=== PATIENT | female | born 1970 | race Caucasian/White ===

== ENCOUNTER 2018-10-02 05:49 | Emergency (ER) | payer OTHER, BC ==
[2018-10-02 07:10] LABS: URINE BLOOD (Dip) POC Trace-lysed (NEGATIVE); URINE KETONES (Dip) POC 1+ (NEGATIVE); URINE LEUKOCYTE EST (Dip) POC Negative (NEGATIVE); URINE NITRITE (Dip) POC Negative (NEGATIVE); URINE TOTAL PROTEIN POC Negative (NEGATIVE)
[2018-10-02 07:10] LABS: URINE PH (Dip) POC 5.5 (5.0-8.5)
[2018-10-02] MEDS: KETOROLAC 30 MG INJ IM (07:12)
== END 2018-10-02 08:09 | disposition home or self-care (01) ==
LOC: FTE 05:49
DX: S39.012A Strain of muscle, fascia and tendon of lower back, initial encounter (principal); M46.06 Spinal enthesopathy, lumbar region; I10 Essential (primary) hypertension; E11.9 Type 2 diabetes mellitus without complications; W18.39XA Other fall on same level, initial encounter; Y92.9 Unspecified place or not applicable
CPT/HCPCS: 72100; 81003; 81025; 96372; 99284-25

== ENCOUNTER 2019-02-16 05:45 | Day surgery (SDC) | payer OTHER ==
[2019-02-16] MEDS ORDERED: LABETALOL HCL 20MG INJ IV (07:00)
[2019-02-16] MEDS ORDERED: hydrALAzine 20 MG INJ IV (07:00)
[2019-02-16] MEDS ORDERED: HYDROmorphONE 1 MG/5 ML IV SYRINGE IV ×3 (07:00)
[2019-02-16] MEDS ORDERED: OXYCODONE/ACETAMINOPHEN (5/325) TAB PO ×2 (07:00)
[2019-02-16] MEDS ORDERED: LIDOCAINE 2% (SDV) 5 ML INJ (07:33)
[2019-02-16] MEDS ORDERED: PROPOFOL 20 ML ×2 (07:33→07:50)
[2019-02-16] MEDS ORDERED: MIDAZOLAM 1 MG/ML 2 ML INJ (07:33)
[2019-02-16] MEDS ORDERED: ONDANSETRON 4 MG INJ (07:50)
[2019-02-16] MEDS ORDERED: FAMOTIDINE 20 MG INJ (07:50)
[2019-02-16] MEDS ORDERED: FENTAnyl 50 MCG/ML VIAL (08:00)
[2019-02-16] MEDS ORDERED: CEFAZOLIN 1 GM INJ (08:05)
[2019-02-16] MEDS ORDERED: EPHEDrine 25 MG/5 ML SYG (08:19)
[2019-02-16] MEDS ORDERED: FENTAnyl 50 MCG/ML VIAL IV (08:30)
[2019-02-16] MEDS ORDERED: HYDROmorphONE 2 MG/ML SYG (08:41)
[2019-02-16] MEDS: ONDANSETRON 4 MG INJ IV (10:16)
[2019-02-16] MEDS ORDERED: DIPHENHYDRAMINE 50 MG INJ IV (11:30)
== END 2019-02-16 11:30 | disposition home or self-care (01) ==
LOC: SDS 05:45
DX: D25.9 Leiomyoma of uterus, unspecified (principal); N92.0 Excessive and frequent menstruation with regular cycle; D25.0 Submucous leiomyoma of uterus; N88.3 Incompetence of cervix uteri
CPT/HCPCS: 58120; 82962; 86850; 86900; 86901; 88305